=== PATIENT | female | born 1965 | race Caucasian/White ===

== ENCOUNTER 2021-01-31 11:42 | Observation (INO) | payer BC, OTHER ==
--- OUTSIDE RECORDS SUMMARY | 2021-01-31 11:45 | XMS REPORT | Continuity of Care Document ---
:1965 Author Organization [facility] t Address [address] [place] [address] Care Team Providers Name Role Phone Unavailable Unavailable Unavailable Payers Payer Name Policy Type Policy Number Effective Date Expiration Date S ource Problems This patient has no known problems. Allergies, Adverse Reactions, Alerts Allergy Allergy Status Severity Reaction(s) Onset Inactive Treating Comm ents Source Name Type Date Date Clinician [place] DA Active [place] [facility] [place] [facility] [place] [place] [facility] [place] [facility] Medications This patient has no known medications. Procedures This patient has no known procedures. Results Test Description Test Time Test Comments Results Result Comments Source URINALYSIS COMPLETE 2019-01-22 20:11:00 Test Item Value Reference Range Interpretation Comme nts UA COLOR (test code = COLU) YELLOW YELLOW UA APPEARANCE (test code = APPU) CLEAR CLEAR UA GLUCOSE DIPSTICK (test code = DGLUU) NORMAL MG/DL NORMAL UA BILIRUBIN DIPSTICK (test code = BILU) NEGATIVE MG/DL NEGATIVE UA KETONE DIPSTICK (test code = KETU) NEGATIVE MG/DL NEGATIVE UA SPECIFIC GRAVITY (test code = SGU) 1.010 1.003-1.030 N UA BLOOD DIPSTICK (test code = JAGRUTI) 250 Brent/mm3 NEGATIVE A UA PH DIPSTICK (test code = BARBIE) 5.0 5.0-9.0 N UA PROTEIN DIPSTICK (test code = PROU) 15 MG/DL NEGATIVE UA UROBILINIOGEN DIPSTICK (test code = URO) NORMAL MG/DL NORMAL UA NITRITE DIPSTICK (test code = JAZMIN) NEGATIVE NEGATIVE UA LEUKOCYTE ESTERASE DIPSTICK (test code = LEUU) NEGATIVE /mm3 NEG ATIVE UA CULTURE NEEDED? (test code = UACULT) NO, WBC<10 Criteria Culture Chk UA [id number] 20:11:00 Test Item Value Reference Range Interpretation Comments UA RBC (test code = RBCU) 3-5 RBC/HPF 0-3 A UA WBC (test code = XWBCU) 3-5 WBC/HPF 0-5 UA EPITHELIAL CELLS (test code = FEW EPI/HPF FEW EPIU) UA BACTERIA (test code = XBACU) FEW NONE URINALYSIS [id number] 20:01:00 Test Item Value Reference Range Interpretation Comments UA COLOR (test code = COLU) YELLOW YELLOW UA APPEARANCE (test code = CLEAR CLEAR APPU) UA GLUCOSE DIPSTICK (test code NORMAL MG/DL NORMAL = DGLUU) UA BILIRUBIN DIPSTICK (test NEGATIVE MG/DL NEGATIVE code = BILU) UA KETONE DIPSTICK (test code NEGATIVE MG/DL NEGATIVE = KETU) UA SPECIFIC GRAVITY (test code 1.010 1.003-1.030 N = SGU) UA BLOOD DIPSTICK (test code = 250 Brent/mm3 NEGATIVE A JAGRUTI) UA PH DIPSTICK (test code = 5.0 5.0-9.0 N BARBIE) UA PROTEIN DIPSTICK (test code 15 MG/DL NEGATIVE = PROU) UA UROBILINIOGEN DIPSTICK NORMAL MG/DL NORMAL (test code = URO) UA NITRITE DIPSTICK (test code NEGATIVE NEGATIVE = JAZMIN) UA LEUKOCYTE ESTERASE DIPSTICK NEGATIVE /mm3 NEGATIVE (test code = LEUU) UA CULTURE NEEDED? (test code Criteria Culture Chk = UACULT) UA [id number] 20:01:00 Test Item Value Reference Range Interpretation Comments UA RBC (test code = RBCU) RBC/HPF 0-3 UA WBC (test code = XWBCU) WBC/HPF 0-5 UA EPITHELIAL CELLS (test code = EPI/HPF FEW EPIU) UA BACTERIA (test code = XBACU) NONE URINALYSIS [id number] 20:01:00 Test Item Value Reference Range Interpretation Comments UA COLOR (test code = COLU) YELLOW YELLOW UA APPEARANCE (test code = CLEAR CLEAR APPU) UA GLUCOSE DIPSTICK (test code NORMAL MG/DL NORMAL = DGLUU) UA BILIRUBIN DIPSTICK (test NEGATIVE MG/DL NEGATIVE code = BILU) UA KETONE DIPSTICK (test code NEGATIVE MG/DL NEGATIVE = KETU) UA SPECIFIC GRAVITY (test code 1.010 1.003-1.030 N = SGU) UA BLOOD DIPSTICK (test code = 250 Brent/mm3 NEGATIVE A JAGRUTI) UA PH DIPSTICK (test code = 5.0 5.0-9.0 N BARBIE) UA PROTEIN DIPSTICK (test code 15 MG/DL NEGATIVE = PROU) UA UROBILINIOGEN DIPSTICK NORMAL MG/DL NORMAL (test code = URO) UA NITRITE DIPSTICK (test code NEGATIVE NEGATIVE = JAZMIN) UA LEUKOCYTE ESTERASE DIPSTICK NEGATIVE /mm3 NEGATIVE (test code = LEUU) UA CULTURE NEEDED? (test code Criteria Culture Chk = UACULT) UA [id number] 20:01:00 Test Item Value Reference Range Interpretation Comments UA RBC (test code = RBCU) RBC/HPF 0-3 UA WBC (test code = XWBCU) WBC/HPF 0-5 UA EPITHELIAL CELLS (test code = EPI/HPF FEW EPIU) UA BACTERIA (test code = XBACU) NONE - XR CHEST [id number] 18:31:00 Patient Name: KERVIN ROPER Unit No: [id number] EXAMS: CPT CODE: [id number] XR CHEST 1V 16752 C3 TIME OF STUDY: 01/22/2019 6:11 PM REASON FOR EXAM: Leukocytosis COMPARISON: None. FINDINGS: AP view of the chest was obtained. Lungs: Normal lung volume. No mass, or consolidation. Normal pulmonary vascularity. Pleura: No pleural effusion or pneumothorax. Heart and Mediastinum: Normal cardiomediastinal silhouette and great vessels. Bones:Normal regional skeletal structures. IMPRESSION: 1. No acute cardiopulmonary process. at 1831 Reported and signed by: Casey Nuñez MD CC: Errol Gallagher Technologist: RT Evette(R) Transcrpt Date/Tm/Trnsp: 01/22/2019 (183) [email or web address] Orig Print D/T: S: 01/22/2019 (1834) [facility] NAME: KERVIN ROPER [address] PHYS: [place] [address] : 1965 AGE: 53 SEX: F LOC: [facility] PHONE #: [phone] EXAM DATE: 01/22/2019 STATUS: REG SDC FAX #:[phone] RADIOLOGY NO: PAGE 1 Signed ReportPROTHROMBIN [id number] 15:40:00 Test Item Value Reference Range Interpretation Comments PROTHROMBIN TIME 10.7 SECONDS 9.6-11.6 N PATIENT (test code = PTP) INTERNATIONAL NORMAL 1.0 0.8-1.1 N The INR is to be RATIO (test code = used only for INR) monitoring oral anticoagulantth erap y. INDICATION I NR VALUE ---- ---- ---- -------1. Prophylaxis, de ep venous thrombos is, including hig h risk surgery. 2.0 - 3.0 2. Prophylaxis, de ep venous thrombos is, hip surgery, treatment for d eep venous thrombosis or pulmonary prevention of systemic emboli sm in patients wit h valvular heart disease, atrial fibrillation, tissue heart va lve, or acute myocar dial infarction. 2.0 - 3 .0 3. Mechanical prosthesis hear t valves, recurrent syste elie embolism. 3.0 - 4.5 PTT [id number] 15:40:00 Test Item Value Reference Range Interpretation Comments PTT ACTIVATED (test code = APTT) 28.4 SECONDS 22.0-33.0 N BASIC METABOLIC [id number] 15:34:00 Test Item Value Reference Range Interpretation Comments SODIUM (test code = 146 MMOL/L 137-145 H NA) POTASSIUM (test code = 3.5 MMOL/L 3.5-5.1 N K) CHLORIDE (test code = 108 MMOL/L 98-107 H CL) CARBON DIOXIDE (test 27 MMOL/L 22-30 N code = CO2) GLUCOSE (test code = 98 MG/DL 74-106 N GLU) BLOOD UREA NITROGEN 16 MG/DL 7-17 N (test code = BUN) GLOMERULAR FILTRATION > 60 Report ing units: RATE (test code = GFR) ml/mi n/1.73 m2 (Modified MDRD Formula)Referen ce Range: > or = 6 0 ml/min/1.73 m2 CREATININE (test code 0.70 MG/DL 0.52-1.04 N = CREAT) CALCIUM (test code = 9.8 MG/DL 8.4-10.2 N CA) [id number] 15:34:00 Test Item Value Reference Range Interpretation Comments MAGNESIUM (test code = MAG) 2.1 MG/DL 1.6-2.3 N CBC W/AUTO [id number] 15:20:00 Test Item Value Reference Range Interpretation Comments WHITE BLOOD CELL (test code = 12.8 K/MM3 3.8-9.8 H WBC) RED BLOOD CELL (test code = 4.51 M/MM3 3.58-4.97 N RBC) HEMOGLOBIN (test code = HGB) 13.5 G/DL 11.2-14.9 N HEMATOCRIT (test code = HCT) 41.3 % 33.2-43.5 N MEAN CELL VOLUME (test code = 92 fL 80.7-99.1 N MCV) MEAN CELL HGB (test code = MCH) 29.9 pg 27.0-34.1 N MEAN CELL HGB CONCETRATION 32.7 % 32.2-35.7 N (test code = MCHC) RED CELL DISTRIBUTION WIDTH 13.7 % 12.1-15.2 N (test code = RDW) PLATELET COUNT (test code = 235 K/MM3 129-368 N PLT) MEAN PLATELET VOLUME (test code 11.8 fl 7.4-10.4 H = MPV) NEUTROPHIL % (test code = NT%) 71.0 % 43-75 N IMMATURE GRANULOCYTE % (test 0.2 % 0.0-2.0 N code = IG%) LYMPHOCYTE % (test code = LY%) 20.1 % 14-44 N MONOCYTE % (test code = MO%) 7.2 % 4-13 N EOSINOPHIL % (test code = EO%) 0.9 % 0-6 N BASOPHIL % (test code = BA%) 0.6 % 0-2 N NUCLEATED RBC % (test code = 0.0 % 0-1.0 N NRBC%) NEUTROPHIL # (test code = NT#) 9.10 K/mm3 2.0-7.6 H IMMATURE GRANULOCYTE # (test 0.03 x10 3/uL 0-0.03 N code = IG#) LYMPHOCYTE # (test code = LY#) 2.58 K/mm3 1.0-3.8 N MONOCYTE # (test code = MO#) 0.93 K/mm3 0.1-0.8 H EOSINOPHIL # (test code = EO#) 0.11 K/mm3 0.0-0.2 N BASOPHIL # (test code = BA#) 0.08 K/mm3 0.0-0.2 N NUCLEATED RBC # (test code = 0.00 K/mm3 0.0-0.1 N NRBC#) - NM MYOCRD SPECT R/S [id number] 08:03:00 Patient Name: KERVIN ROPER Unit No: [id number] EXAMS: CPT CODE: [id number] NM MYOCRD SPECT R/S [facility] [id number] INDICATION: Precordial chest pain. The patient underwent myocardial perfusion imaging utilizing 10.58 mCi of Cardiolite at rest and . 31.4 mCi Cardiolite atpeak stress. SPECT imaging was obtained at rest and stress. Gated SPECT imaging was obtained at stress. Neil treadmill protocol was utilized for stress. FINDINGS: There is a small mild to moderate reversible apical perfusion defect. CONCLUSIONS: 1. ABNORMAL EXERCISE CARDIOLITE SHOWING A SMALL AREA OF APICAL ISCHEMIA.2. GATED PERFUSION IMAGING SHOWS NORMAL LEFT VENTRICULAR SIZE AND SYSTOLIC FUNCTION WITH NORMAL WALL MOTION. END- DIASTOLIC VOLUME IS 64 mL, END-SYSTOLIC VOLUME IS 20 mL, AND THE EJECTION FRACTION IS 69 %. at 0803 Reported and signed by: Errol Gallagher M.D. CC: Errol Gallagher Technologist: Marilin Robbins, RT(NM); Kervin Jorgensen RT(N) Transcrpt Date/Tm/Trnsp: 12/22/2018 (0803) Rajani Orig Print D/T: S: 12/22/2018 (0806) [facility] NAME: KERVIN ROPER [address] [facility], [facility] [address] PHYS: [place] [address] : 1965 AGE: 53 SEX: F LOC: [facility] PHONE #: [phone] EXAM DATE: 12/15/2018 STATUS: DEP CLI FAX #: [phone] RADIOLOGY NO: PAGE 1 Signed Report
[2021-01-31] MEDS ORDERED: ASPIRIN 81 MG CHEWABLE TABLET ONE (12:37)
[2021-01-31 12:38] LABS: Absolute Lymphocytes (CBC) 2.2 K/uL (0.7-4.9); Basophils % 1.2 % (0-1.3); Hematocrit 44.5 % (36.0-45.0); Lymphocytes % 25.3 % (15.3-44.8); MPV 10.7 fL (7.6-11.3); RBC Red Blood Cell Count 4.96 M/uL (3.86-4.86)
[2021-01-31 12:48] LABS: Protime INR 0.99
[2021-01-31 12:56] LABS: ALT/SGPT 28 U/L (12-78); AST/SGOT 14 U/L (15-37); Albumin 4.2 g/dL (3.4-5.0); Alkaline Phosphatase 102 U/L (45-117); BUN Blood Urea Nitrogen 12 mg/dL (7-18); Bicarbonate 26 mmol/L (21-32); Bilirubin Direct 0.2 mg/dL (0-0.2); Bilirubin Total 0.9 mg/dL (0.2-1.0); Glucose Level 103 mg/dL (74-106); NT PRO-BNP 82 pg/mL (<125); Potassium 3.6 mmol/L (3.5-5.1); Protein, Total 7.7 g/dL (6.4-8.2); Sodium Level 142 mmol/L (136-145); Troponin (Emerg Dept Use Only) < 0.02 ng/mL (0.0-0.045)
--- NOTE | 2021-01-31 13:00 | RAD REPORT ---
EXAM DESCRIPTION: RAD - Chest Single View - 01/31/2021 12:54 pm CLINICAL HISTORY: CHEST PAIN COMPARISON: Portable May 2015 TECHNIQUE: AP portable chest image was obtained 01/31/2021 12:54 pm . FINDINGS: Chronic interstitial lung changes are evident similar to comparison. No superimposed failu re, infiltrate or mass. Heart and vasculature are normal. No measurable pleural effusion and no pneum othorax. No acute bony abnormality seen. No acute aortic findings suspected. IMPRESSION: No acute cardiopulmonary process. Chronic interstitial lung pattern matches comparison.
--- NOTE | 2021-01-31 13:58 | RAD REPORT ---
EXAM DESCRIPTION: CT - Chest For Pe Angio - 01/31/2021 1:26 pm CLINICAL HISTORY: CHEST PAIN COMPARISON: CTANGIO CHEST FOR PE dated 03/14/2008; Chest Single View dated 01/31/2021 TECHNIQUE: Dynamically enhanced 3 mm thick images of the chest were obtained during administration o f approximately 150mL Isovue 370 IV contrast. Coronal and oblique MIP reconstruction images were gene rated and reviewed. Exam utilizes a protocol to evaluate the pulmonary arterial tree. All CT scans are performed using dose optimization technique as appropriate and may include automated exposure control or mA/KV adjustment according to patient size. FINDINGS: No pulmonary emboli are identified. The aorta as imaged shows no acute or suspicious finding. No pericardial thickening or effusion. No consolidation or mass lesion. Patient has a very minimal amounts of ground-glass opacification in the lung ridley favored to be atelectasis rather than infiltrate or edema. Bronchial wall thickening is present. Bronchitis or viral infiltrate would be possible and can be correlated with clinical pres entation. No endobronchial lesion. No pleural effusion or pleural thickening. No pneumothorax. No mediastinal or hilar suspicious masses. No chest wall masses or abnormal axillary lymphadenopathy. IMPRESSION: No pulmonary emboli identified. Bronchial wall thickening may indicate chronic disease or an acute viral infiltrate process.
--- NOTE | 2021-01-31 14:28 | ER ---
Nurse's Notes [facility] [place] Name: Tita Early Age: 55 yrs Sex: Female : 1965 Arrival Date: 01/31/2021 Time: 11:45 Bed 6 Private MD: Diagnosis: Chest pain, unspecified Presentation: 01/31 12:06 Chief complaint: Patient states: Left sided CP, radiated to left arm, felt like jl7 cramping and achy down the arm, last 15 min. Went to PCP and had an EKG, they sent me because the EKG said it was abnormal, reports symptoms have resolved. Coronavirus screen: Client denies travel out of the [place] in the last 14 days. At this time, the client does not indicate any symptoms associated with coronavirus-19. Ebola Screen: No symptoms or risks identified at this time. Initial Sepsis Screen: Does the patient meet any 2 criteria? No. Patient's initial sepsis screen is negative. Does the patient have a suspected source of infection? No. Patient's initial sepsis screen is negative. Risk Assessment: Do you want to hurt yourself or someone else? Patient reports no desire to harm self or others. Onset of symptoms was January 31, 2021 at 10:00. Care prior to arrival: None. Transition of care: Dr. Bundy, PCP. 12:06 Method Of Arrival: Ambulatory jl7 12:06 Acuity: MARCY 2 jl7 Triage Assessment: 12:12 General: Appears in no apparent distress. uncomfortable, Behavior is calm, cooperative, jl7 appropriate for age. Pain: Complains of pain in anterior aspect of left upper chest Pain radiates to left arm Pain currently is 0 out of 10 on a pain scale. at worst was 8 out of 10 on a pain scale. Quality of pain is described as aching, crampy, Pain began at 1000 this morning Is lasting a few minutes. Neuro: Level of Consciousness is awake, alert, obeys commands, Oriented to person, place, time, situation. Cardiovascular: Heart tones present Patient's skin is warm and dry. Respiratory: Airway is patent Respiratory effort is even, unlabored, Respiratory pattern is regular, symmetrical. Derm: Skin is pink, warm \T\ dry. 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 - Social history:: Smoking status: Reported history of juuling and/or vaping. - Family history:: not pertinent. - Hospitalizations: : No recent hospitalization is reported. Screenin:14 Abuse screen: Denies threats or abuse. Denies injuries from another. Nutritional jl7 screening: No deficits noted. Tuberculosis screening: No symptoms or risk factors identified. Fall Risk IV access (20 points). Total [place] Fall Scale indicates No Risk (0-24 pts). Assessment: 12:14 General: see triage assessment. jl7 13:36 Reassessment: Patient appears in no apparent distress at this time. No changes from jl7 previously documented assessment. Patient and/or family updated on plan of care and expected duration. Pain level reassessed. Patient is alert, oriented x 3, equal unlabored respirations, skin warm/dry/pink. 16:35 General: initial b. pt fed and given d50. recheck bg273. physician aware. . ak2 18:30 General: report called to rn. ak2 Vital Signs: 12:06 BP 127 / 84; Pulse 62; Resp 17 S; Temp 97.9; Pulse Ox 100% on R/A; Weight 70.76 kg (R); jl7 Height 5 ft. 2 in. (157.48 cm) (R); Pain 0/10; 12:45 BP 112 / 57; Pulse 67; Resp 17; Pulse Ox 99% ; jl7 13:37 BP 127 / 69; Pulse 66; Resp 15; Pulse Ox 97% ; jl7 16:33 BP 123 / 64; Pulse 62; Resp 18; Pulse Ox 98% on R/A; ak2 17:00 BP 126 / 72; tr6 18:19 BP 124 / 74; Pulse 65; Resp 16; Pulse Ox 98% ; ak2 12:06 Body Mass Index 28.53 (70.76 kg, 157.48 cm) jl7 ED Course: 11:45 Patient arrived in ED. bp1 12:06 Tahir Hall MD is Attending Physician. rn 12:06 Talia Sanabria RN is Primary Nurse. jl7 12:11 Triage completed. jl7 12:12 Arm band placed on right wrist. EKG completed in triage. Results shown to MD. jl7 12:14 Patient has correct armband on for positive identification. Placed in gown. Bed in low jl7 position. Call light in reach. Side rails up X 1. alarm security or surveillance monitor on. Pulse ox on. NIBP on. 12:31 Initial lab(s) drawn, by wa, sent to lab. Inserted saline lock: 20 gauge in right jl7 wrist, using aseptic technique. Blood collected. 12:54 XRAY Chest (1 view) In Process Unspecified. EDMS 13:12 Basic Metabolic Panel Sent. jl7 13:26 CT Chest For PE Angio In Process Unspecified. EDMS 14:27 Darion Lao DO is Hospitalizing Provider. rn 14:40 COVID swab sent to lab. jl7 15:46 Primary Nurse role handed off by Talia Sanabria RN jl7 16:32 Alfonso Humphreys is Primary Nurse. ak2 Administered Medications: 12:31 Drug: Aspirin Chewable Tablet 324 mg Route: PO; jl7 13:36 Follow up: Response: No adverse reaction jl7 Outcome: 14:27 Decision to Hospitalize by Provider. rn 18:54 Patient left the ED. ak2 Signatures: Dispatcher [employer] EDMS Tahir Hall MD MD rn Talia Sanabria RN RN jl7 Maricarmen Perla bp1 Charlotte Escobar, RN RN tr6 Alfonso Humphreys ak2
--- NOTE | 2021-01-31 14:29 | EDPHYS ---
Physician Documentation [facility] Name: Tita Early Age: 55 yrs Sex: Female : 1965 Arrival Date: 01/31/2021 Time: 11:45 Bed 6 Private MD: ED Physician Tahir Hall HPI: 01/31 13:11 This 55 yrs old Female presents to ER via Ambulatory with complaints of rn Abnormal EKG. 13:11 The patient or guardian reports chest pain that is located primarily in the anterior rn chest wall, left. Onset: just prior to arrival. The pain radiates to the left arm, left jaw. Associated signs and symptoms: Pertinent positives: None. Pertinent negatives: abdominal pain, cough, diaphoresis, headache, palpitations, shortness of breath, syncope, vomiting. The chest pain is described as dull, a heaviness. Duration: The patient or guardian reports a single episode, that lasted 15 minute(s). Modifying factors: The symptoms are alleviated by nothing. the symptoms are aggravated by nothing. Severity of pain: At its worst the pain was moderate in the emergency department the pain has resolved. The patient has not experienced similar symptoms in the past. Reports chest pain, prior to arrival, lasted 15 minutes, resolved on its own, was at work. No trauma. No cough/sob. Does radiate to left jaw and arm. + hx of CVA and FL, on plavix. No current pain. Back to baseline.. 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 - Social history:: Smoking status: Reported history of juuling and/or vaping. - Family history:: not pertinent. - Hospitalizations: : No recent hospitalization is reported. ROS: 13:11 Constitutional: Negative for fever, chills, and weight loss, Eyes: Negative for injury, rn pain, redness, and discharge, Neck: Negative for injury, pain, and swelling, Cardiovascular: Negative for palpitations, and edema, Respiratory: Negative for shortness of breath, cough, wheezing, and pleuritic chest pain, Abdomen/GI: Negative for abdominal pain, nausea, vomiting, diarrhea, and constipation, Back: Negative for injury and pain, : Negative for injury, bleeding, discharge, and swelling, MS/Extremity: Negative for injury and deformity, Skin: Negative for injury, rash, and discoloration, Neuro: Negative for headache, weakness, numbness, tingling, and seizure. Exam: 13:01 ECG was reviewed by the Attending Physician. rn 13:11 Constitutional: This is a well developed, well nourished patient who is awake, alert, rn and in no acute distress. Head/Face: Normocephalic, atraumatic. Eyes: Periorbital areas with no swelling, redness, or edema. Neck: Trachea midline, no masses palpated, and no cervical lymphadenopathy. Supple, full range of motion without nuchal rigidity, or vertebral point tenderness. No Meningismus. Chest/axilla: Normal chest wall appearance and motion. Nontender with no deformity. No lesions are appreciated. Cardiovascular: Regular rate and rhythm. No pulse deficits. Respiratory: No increased work of breathing, no retractions or nasal flaring. Skin: Warm, dry MS/ Extremity: Pulses equal, no cyanosis. Neuro: Awake and alert, GCS 15, oriented to person, place, time, and situation. Cranial nerves II-XII grossly intact. Motor strength 5/5 in all extremities. Sensory grossly intact. Cerebellar exam normal. Vital Signs: 12:06 BP 127 / 84; Pulse 62; Resp 17 S; Temp 97.9; Pulse Ox 100% on R/A; Weight 70.76 kg (R); jl7 Height 5 ft. 2 in. (157.48 cm) (R); Pain 0/10; 12:45 BP 112 / 57; Pulse 67; Resp 17; Pulse Ox 99% ; jl7 13:37 BP 127 / 69; Pulse 66; Resp 15; Pulse Ox 97% ; jl7 16:33 BP 123 / 64; Pulse 62; Resp 18; Pulse Ox 98% on R/A; ak2 17:00 BP 126 / 72; tr6 18:19 BP 124 / 74; Pulse 65; Resp 16; Pulse Ox 98% ; ak2 12:06 Body Mass Index 28.53 (70.76 kg, 157.48 cm) jl7 MDM: 12:06 Patient medically screened. rn 14:26 Differential diagnosis: acute myocardial infarction, acute pericarditis, coronary rn artery disease costochondritis, gastroesophageal reflux disease (GERD), pericarditis, pneumothorax, pulmonary embolus, stable angina. Data reviewed: vital signs, nurses notes, lab test result(s), EKG, radiologic studies, plain films, and as a result, I will admit patient. Counseling: I had a detailed discussion with the patient and/or guardian regarding: the historical points, exam findings, and any diagnostic results supporting the discharge/admit diagnosis, lab results, radiology results, the need for further work-up and treatment in the hospital. Response to treatment: the patient's condition has returned to base line, the patient is now symptom free, and as a result, I will admit patient. Admission orders: after a detailed discussion of the patient's condition and case, the admit orders are written by me. 01/31 12:12 Order name: Basic Metabolic Panel 01/31 12:12 Order name: CBC with Diff; Complete Time: 12: 01/31 12:12 Order name: LFT's; Complete Time: 12: 01/31 12:12 Order name: NT PRO-BNP; Complete Time: 12: 01/31 12:12 Order name: PT-INR; Complete Time: 12: 01/31 12:12 Order name: Troponin (emerg Dept Use Only); Complete Time: 12: 01/31 12:12 Order name: XRAY Chest (1 view); Complete Time: 13:52 01/31 12:12 Order name: D-Dimer; Complete Time: 12:59 01/31 12:13 Order name: Basic Metabolic Panel; Complete Time: 12:59 [facility] 01/31 13:00 Order name: CT Chest For PE Angio; Complete Time: 13:59 01/31 16:14 Order name: SARS-COV-2 RT PCR [facility] 01/31 16:23 Order name: Lipid Profile [facility] 01/31 16:38 Order name: Hemoglobin A1c [facility] 01/31 12:12 Order name: EKG; Complete Time: 12:13 rn 01/31 12:12 Order name: Cardiac monitoring; Complete Time: 12: rn 01/31 12:12 Order name: EKG - Nurse/Tech; Complete Time: 12: rn 01/31 12:12 Order name: IV Saline Lock; Complete Time: 12: rn 01/31 12:12 Order name: Labs collected and sent; Complete Time: 12: rn 01/31 12:12 Order name: O2 Per Protocol; Complete Time: 12: rn 01/31 12:12 Order name: O2 Sat Monitoring; Complete Time: 12: rn EC: Rate is 62 beats/min. Rhythm is regular. QRS [place] is Normal. CA interval is normal. QRS rn interval is normal. QT interval is normal. No Q waves. T waves are Normal. No ST changes noted. Clinical impression: NSR w/ Non-specific ST/T Changes. Interpreted by me. Reviewed by me. Administered Medications: 12:31 Drug: Aspirin Chewable Tablet 324 mg Route: PO; jl7 13:36 Follow up: Response: No adverse reaction jl7 Disposition: 01/31/21 14:27 Hospitalization ordered by Darion Lao for Observation. Preliminary diagnosis is Chest pain, unspecified. - Bed requested for Telemetry/MedSurg (observation). - Status is Observation. ak2 - Condition is Stable. - Problem is new. - Symptoms have improved. Signatures: Dispatcher [employer] EDMA Shaniqua Roach Roman, MD MD rn Leal, Jahala, RN RN jl7 Alfonso Humphreys2 Corrections: (The following items were deleted from the chart) 15:26 14:01 CORONAVIRUS+MR.LAB.BRZ ordered. [facility] EDMS 17:36 14:27 Hospitalization Ordered by Darion Lao DO for Observation. Preliminary bd diagnosis is Chest pain, unspecified. Bed requested for Telemetry/MedSurg (observation). Status is Observation. Condition is Stable. Problem is new. Symptoms have improved. rn 18:54 17:36 01/31/2021 14:27 Hospitalization Ordered by Darion Lao DO for Observation. ak2 Preliminary diagnosis is Chest pain, unspecified. Bed requested for Telemetry/MedSurg (observation). Status is Observation. Condition is Stable. Problem is new. Symptoms have improved. bd
--- NOTE | 2021-01-31 16:05 | P.HP ---
Certification for Inpatient Patient admitted to: Observation Patient will require the following post-hospital care: None Practitioner: I am a practitioner with admitting privileges, knowledge of patient current condition, hospital course, and medical plan of care. Services: Services provided to patient in accordance with Admission requirements found in Title 42 Section 412.3 of the Code of Federal Regulations Patient History Date of Service: 01/31/21 Reason for admission: Chest pain History of Present Illness: Patient is a 55-year-old female with a past medical history significant for NV, CVA, hypertension, HLD who presents with complaint of intermittent chest pain onset today around 9:30am. Patient reported that chest pain is located in the left chest wall and chest pain radiates to her jaw and left arm. Patient rated pain as 8/10 and described pain as sharp in quality. Patient denies any other signs and symptoms. Symptoms are aggravated or relieved by nothing. Patient reported that she went to see her PCP where an EKG was done and was found to be abnormal. Patient was referred to the hospital by his primary care doctor. Patient decided to present to the hospital as directed for medical evaluation. 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 Allergies azithromycin [From Zithromax] Allergy (Intermediate, Verified 11/05/11 05:26) Itching/Hives/Rash levofloxacin [From Levaquin] Allergy (Intermediate, Verified 11/05/11 05:25) Itching/Hives/Rash Penicillins Allergy (Intermediate, Verified 11/05/11 05:25) Itching/Hives/Rash azithromycin Allergy (Uncoded 12/08/14 15:21) Unknown Home medications list reviewed: No Home Medications: Albuterol [Proventil] 17 gm IH PRN PRN 11/05/11 Budesonide/Formoterol Fumarate [Symbicort 160-4.5 Mcg Inhaler] 2 puff IH DAILY 11/05/11 Clopidogrel Bisulfate [Plavix] 75 mg PO DAILY 11/05/11 Enalapril Maleate [Vasotec] 5 mg PO DAILY 11/05/11 - Past Medical/Surgical History Diabetic: No -: HTN -: CVA -: NV -: HLD - Social History Smoking Status: Current every day smoker Counseled patient to stop smoking for: less than 10 minutes Smoking therapy provided: Yes Patient receptive to therapy: Yes Alcohol use: No CD- Drugs: No Caffeine use: Yes Place of Residence: Home Review of Systems Unremarkable General: Unremarkable Eyes: Unremarkable ENT: Unremarkable Respiratory: Unremarkable Cardiovascular: Chest Pain Gastrointestinal: Unremarkable Genitourinary: Unremarkable Musculoskeletal: Arm Pain Physical Examination - Physical Exam General: Alert, Oriented x3 HEENT: Atraumatic, PERRLA, Mucous membr. moist/pink, EOMI, Sclerae nonicteric Neck: Supple, 2+ carotid pulse no bruit, No LAD, Without JVD or thyroid abnormality Respiratory: Clear to auscultation bilaterally, Normal air movement Cardiovascular: Regular rate/rhythm, Normal S1 S2 Capillary refill: Brisk Gastrointestinal: Normal bowel sounds, Soft and benign, No tenderness Musculoskeletal: No clubbing, No tenderness Integumentary: No rashes Neurological: Normal gait, Normal speech, Normal strength at 5/5 x4 extr, Normal tone, Normal affect Lymphatics: No axilla or inguinal lymphadenopathy External genitalia: Deferred - Studies Laboratory Data (last 24 hrs) 01/31/21 12:26: PT 11.4, INR 0.99 01/31/21 12:26: WBC 8.60, Hgb 14.8, Hct 44.5, Plt Count 220 01/31/21 12:26: Sodium 142, Potassium 3.6, BUN 12, Creatinine 0.69, Glucose 103, Total Bilirubin 0.9, AST 14 L, ALT 28, Alkaline Phosphatase 102 Assessment and Plan - Plan --Chest pain of unclear etiology. Will trend troponins- so far negative. Telemetry to monitor for any significant arrhythmia. Cardiology consulted. Echocardiogram pending to assess LV\Valvular functions and wall motion. We will await further recommendations from christmas tree farmer. --Hypertension. Stable. We will manage BP with labetalol p.r.n.. --Hyperlipidemia. Continue statin. --History of CVA and NV. Continue aspirin, Plavix and statin. --Nicotine dependence. Patient placed on nicotine patch and counseled on tobacco cessation --Chronic bronchitis. Continue home medications. --DVT prophylaxis with Lovenox subQ . Discharge Plan: Home Plan to discharge in: 48 Hours - Advance Directives Does patient have a Living Will: No Does patient have a Durable POA for Healthcare: No - Code Status/Comfort Care Code Status Assessed: Yes Code Status: Full Code Critical Care: No
[2021-01-31] MEDS ORDERED: ACETAMINOPHEN 500 MG TAB PO PRN (19:00)
[2021-01-31] MEDS ORDERED: LABETALOL 20 MG/4ML SYRINGE IV PRN (19:00)
[2021-01-31] MEDS ORDERED: ONDANSETRON 4 MG/2 ML VIAL IV PRN (19:00)
[2021-01-31] MEDS ORDERED: POTASSIUM CL SA 10 MEQ TAB PO ONE (19:38)
[2021-01-31 20:00] LABS: NT PRO-BNP 65 pg/mL (<125); Troponin I < 0.02 ng/mL (0.0-0.045)
[2021-01-31] MEDS ORDERED: ATORVASTATIN 40 MG TAB PO SCH (21:00)
[2021-01-31 23:32] VITALS: BMI 28.5
[2021-02-01 06:19] LABS: Urine Appearance CLEAR (Clear); Urine Bilirubin NEGATIVE (Negative); Urine Blood NEGATIVE (Negative); Urine Color YELLOW (Yellow); Urine Glucose NEGATIVE (Negative); Urine Protein NEGATIVE (Negative); Urine Specific Gravity 1.025 (1.005-1.030); Urine Urobilinogen 0.2 mg/dL (0.2-1.0); Urine pH 5.5 (5.0-7.0)
[2021-02-01 06:29] LABS: Absolute Lymphocytes (CBC) 2.1 K/uL (0.7-4.9); Basophils % 0.8 % (0-1.3); Hematocrit 40.4 % (36.0-45.0); Lymphocytes % 23.1 % (15.3-44.8); MPV 10.8 fL (7.6-11.3); RBC Red Blood Cell Count 4.53 M/uL (3.86-4.86)
[2021-02-01 06:32] LABS: Urine Microscopic Reflex NO UMIC
[2021-02-01 06:40] LABS: Magnesium 2.4 mg/dL (1.8-2.4); Potassium 4.1 mmol/L (3.5-5.1)
[2021-02-01] MEDS ORDERED: NICOTINE 21 MG/PAT TD SCH (09:00)
[2021-02-01] MEDS ORDERED: ASPIRIN 81 MG CHEWABLE TABLET PO SCH (09:00)
[2021-02-01] MEDS ORDERED: ENOXAPARIN 40 MG/0.4 ML SQ SCH (09:00)
[2021-02-01 09:37] VITALS: O2SAT 97
--- NOTE | 2021-02-01 11:48 | P.DS ---
Admission Date: 01/31/21 Discharge Date: 02/01/21 Disposition: ROUTINE DISCHARGE Discharge Condition: GOOD Reason for Admission: Chest pain Consultations: Cardiology - Dr. Arroyo Procedures: CXR (01/31): No acute cardiopulmonary process. Chronic interstitial lung pattern matches comparison. CTA Chest (01/31): No pulmonary emboli identified. Bronchial wall thickening may indicate chronic disease or an acute viral infiltrate process TTE (02/01): normal echo. EF: 73%. no wall motion abnormalitity. no effusion Problem list Chest pain Hypertension Hyperlipidemia History of CVA and MN Nicotine dependence. Chronic bronchitis Brief History of Present Illness: Patient is a 55-year-old female with a past medical history significant for MN, CVA, hypertension, HLD who presents with complaint of intermittent chest pain onset today around 9:30am. Patient reported that chest pain is located in the left chest wall and chest pain radiates to her jaw and left arm. Patient rated pain as 8/10 and described pain as sharp in quality. Patient denies any other signs and symptoms. Symptoms are aggravated or relieved by nothing. Patient reported that she went to see her PCP where an EKG was done and was found to be abnormal. Patient was referred to the hospital by his primary care doctor. Patient decided to present to the hospital as directed for medical evaluation. 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 Hospital Course: Patient's chest pain resolved prior to admission. Troponins remained negative. Patient was feeling much better and requested to be discharged prior to further evaluation by Cardiology. Patient was scheduled to f/u with Dr. Arroyo in office tomorrow at 1pm prior to discharge. Patient expressed understanding and agreement with the plan. Vital Signs/Physical Exam: Temp Pulse Resp BP Pulse Ox 98.3 F 61 17 122/57 L 97 02/01/21 08:00 02/01/21 08:00 02/01/21 08:00 02/01/21 08:00 02/01/21 08:00 General: Alert, In no apparent distress HEENT: Atraumatic, PERRLA, EOMI Neck: Supple, JVD not distended Respiratory: Clear to auscultation bilaterally, Normal air movement Cardiovascular: No edema, Regular rate/rhythm, Normal S1 S2 Gastrointestinal: Soft and benign, Non-distended, No tenderness Musculoskeletal: No erythema, No tenderness Integumentary: No rashes, No breakdown Neurological: Normal speech, Normal affect Laboratory Data at Discharge: WBC 9.00 K/uL (4.3-10.9) 02/01/21 06:16 Hgb 13.5 g/dL (12.0-15.0) 02/01/21 06:16 Hct 40.4 % (36.0-45.0) 02/01/21 06:16 Plt Count 220 K/uL (152-406) 02/01/21 06:16 PT 11.4 SECONDS (9.5-12.5) 01/31/21 12:26 INR 0.99 01/31/21 12:26 Sodium 143 mmol/L (136-145) 02/01/21 06:16 Potassium 4.1 mmol/L (3.5-5.1) 02/01/21 06:16 BUN 16 mg/dL (7-18) 02/01/21 06:16 Creatinine 0.74 mg/dL (0.55-1.3) 02/01/21 06:16 Glucose 133 mg/dL (74-106) H 02/01/21 06:16 Magnesium 2.4 mg/dL (1.8-2.4) 02/01/21 06:16 Total Bilirubin 0.9 mg/dL (0.2-1.0) 01/31/21 12:26 AST 14 U/L (15-37) L 01/31/21 12:26 ALT 28 U/L (12-78) 01/31/21 12:26 Alkaline Phosphatase 102 U/L (45-117) 01/31/21 12:26 Troponin I < 0.02 ng/mL (0.0-0.045) 02/01/21 07:23 Triglycerides 102 mg/dL (<150) 01/31/21 16:00 Cholesterol 157 mg/dL (<200) 01/31/21 16:00 HDL Cholesterol 55 mg/dL (40-60) 01/31/21 16:00 Cholesterol/HDL Ratio 2.85 01/31/21 16:00 Home Medications: Albuterol [Proventil] 17 gm IH PRN PRN 11/05/11 Budesonide/Formoterol Fumarate [Symbicort 160-4.5 Mcg Inhaler] 2 puff IH DAILY 11/05/11 Clopidogrel Bisulfate [Plavix] 75 mg PO DAILY 11/05/11 Atorvastatin Calcium [Lipitor*] 1 tab PO DAILY 02/01/21 Losartan/Hydrochlorothiazide [Losartan-Hctz 100-12.5 mg Tab] 1 tab PO DAILY 02/01/21 Diet: AHA Activity: Ad yuan Followup: Kit Arroyo MD [ACTIVE - CAN ADMIT] - Michael Bundy MD [Primary Care Provider] - Time spent managing pt's care (in minutes): 40
--- NOTE | 2021-02-01 12:01 | EKG ---
Test Date: 2021-01-31 Test Time: 12:02:57 Title Closer: MARY MEASUREMENT RESULTS: Intervals: Rate: 62 WY: 128 QRSD: 102 QT: 442 QTc: 448 [place]: P: 27 WY: 128 QRS: 72 T: 61 INTERPRETIVE STATEMENTS: Normal sinus rhythm Cannot rule out Anterior infarct, age undetermined Abnormal ECG Compared to ECG 05/11/2015 20:15:06 Myocardial infarct finding now present Electronically Signed On 02-01-21 11:57:19 CDT by Kit Arroyo
--- NOTE | 2021-02-01 12:44 | ECHO ---
HEIGHT: 5 ft 2 in WEIGHT: 156 lb 0 oz DATE OF STUDY: 02/01/[address]: Trip Villatoro 2-DIMENSIONAL: YES M.MODE: YES DOPPLER: YES COLOR FLOW: YES TDS: PORTABLE: DEFINITY: BUBBLE STUDY: DIAGNOSIS: CHEST PAIN CARDIAC HISTORY: CATHERIZATION: NO SURGERY: NO PROSTHETIC VALVE: NO PACEMAKER: NO MEASUREMENTS (cm) DIASTOLIC (NORMALS) SYSTOLIC (NORMALS) IVSd 0.8 (0.6-1.2) LA Diam 2.6 (1.9-4.0) LVEF 73% LVIDd 4.8 (3.5-5.7) LVIDs 2.8 (2.0-3.5) %FS 42% LVPWd 1.0 (0.6-1.2) Ao Diam 2.5 (2.0-3.7) 2 DIMENSIONAL ASSESSMENT: RIGHT ATRIUM: NORMAL LEFT ATRIUM: NORMAL RIGHT VENTRICLE: NORMAL LEFT VENTRICLE: NORMAL TRICUSPID VALVE: NORMAL MITRAL VALVE: NORMAL PULMONIC VALVE: NORMAL AORTIC VALVE: NORMAL PERICARDIAL EFFUSION: NONE AORTIC ROOT: NORMAL LEFT VENTRICULAR WALL MOTION: DOPPLER/COLOR FLOW: COMMENTS: NORMAL 2-DIMENSIONAL ECHOCARDIOGRAM WITH DOPPLER. NO WALL MOTION ABNORMALITY. NO EFFUSION. TECHNOLOGIST: OSVALDO MONAHAN
[2021-02-01 13:22] VITALS: BP 134/58; TEMP 97.6
== END 2021-02-01 12:40 | disposition home or self-care (01) ==
LOC: ER 11:42 → ERHOLD 15:41 → 2ND 18:31
PROVIDERS: ADMIT Hospitalist; ATTEND Hospitalist
DX: R07.9 Chest pain, unspecified (principal); I10 Essential (primary) hypertension; E78.5 Hyperlipidemia, unspecified; I25.2 Old myocardial infarction; Z86.73 Personal history of transient ischemic attack (TIA), and cerebral infarction without residual deficits; Z20.822 Contact with and (suspected) exposure to COVID-19; R94.31 Abnormal electrocardiogram [ECG] [EKG]; J42 Unspecified chronic bronchitis; F17.290 Nicotine dependence, other tobacco product, uncomplicated
CPT/HCPCS: 93005; 93306; 85025 ×2; 80048 ×2; 36415 ×2; 83735; 85610; 80061; 85379; 80076; 84443; 81003; 83036; 84484 ×4; 84439; 83880 ×2; 71275; 71045; 99284; U0003; Q9967; J1650

== ENCOUNTER 2021-02-13 07:23 | Day surgery (SDC) | payer BC ==
[2021-02-13] MEDS ORDERED: NA CHLORIDE 0.9% 500 ML ONE (07:57)
[2021-02-13] MEDS ORDERED: HEPA 1000U/500MLS 1,000 UNIT/500 ML BAG IV ONE (08:29)
[2021-02-13] MEDS ORDERED: MIDAZOLAM HCL 2 MG/2 ML INJ ONE ×2 (08:37→09:06)
[2021-02-13] MEDS ORDERED: NA CHLORIDE 0.9% 0 ML ONE (08:38)
[2021-02-13] MEDS ORDERED: ATROPINE SULF 1 MG/10 ML SYR IV ONE (08:38)
[2021-02-13] MEDS ORDERED: FENTANYL CITR 100 MCG/2 ML ONE (08:38)
[2021-02-13 09:19] VITALS: TEMP 96.7
[2021-02-13 11:01] VITALS: BP 125/75; O2SAT 98
--- NOTE | 2021-02-13 13:42 | OP ---
Surgeon: Kit Arroyo MD Embroiderer: Mr. Skyler Kapadia. Procedure: Admitted on 02/13/2021 to the collaborative physician for left heart catheterization selective coronary arteriogram. Reason For Catheterization: Multiple admissions for chest pain consistent with unstable angina. Procedure In Detail: The patient was prepped and draped in the routine sterile fashion. Given Verse d for sedation. A 6-Albanian sheath introduced in the right common femoral artery successfully using t he Seldinger technique. Angiography there was normal. Angio-Seal was used to close the case. [employer] catheter left and right were used to cannulate the left main and right main respectively. She has small vessel that was tortuous, but no focal stenosis. There were normal coronaries. There were no complications. Blood Loss: 5 mL. Postoperative Diagnoses: Chest pain, normal coronaries. Plan: Plan is for medical therapy. Anesthesia: Conscious sedation 45 minutes. The patient will remain at bedrest for 2 hours after her Angio-Seal, and I will send her home and I w ill see her in the office in the near future. NORMA/GISEL Voice ID: [id number] Report ID: [id number]
== END 2021-02-13 11:10 | disposition home or self-care (01) ==
LOC: CCL 07:23
DX: R07.9 Chest pain, unspecified (principal); I10 Essential (primary) hypertension; E78.2 Mixed hyperlipidemia; Z20.822 Contact with and (suspected) exposure to COVID-19; Z82.49 Family history of ischemic heart disease and other diseases of the circulatory system
CPT/HCPCS: 36415; 85730; 93454; U0003; C1893; C1760; J2250 ×2; J3010; J7040; J1644; J0583